=== PATIENT | female | born 1970 | race Caucasian/White ===

== ENCOUNTER 2023-07-17 20:48 | Emergency (ER) | payer OTHER ==
[2023-07-17 21:03] VITALS: BP 127/76; PULSE 104; RESP 18; TEMP 97.8; BMI 29.8
[2023-07-17] MEDS ORDERED: DEXAMETHASONE SOD PHOSPHATE 10 MG/1 ML VIAL PO ONE (21:34)
[2023-07-17] MEDS ORDERED: FLUTICASONE PROP 0.05% 16 GM NASAL SPRAY NS ONE (21:34)
[2023-07-17] MEDS ORDERED: BENZONATATE 200 MG CAPSULE PO ONE (21:35)
[2023-07-17] MEDS ORDERED: DEXAMETHASONE SOD PHOSPHATE 10 MG/1 ML VIAL ONE (21:44)
[2023-07-17] MEDS ORDERED: ALBUTEROL SO4 2.5/IPRATROPIUM 0.5 INH SOL 3 ML VIAL.NEB. NEB ONE (21:44)
[2023-07-17] MEDS: ALBUTEROL SO4 2.5/IPRATROPIUM 0.5 INH SOL 3 ML VIAL.NEB. NEB SCH ×2 (21:48→22:22)
== END 2023-07-17 23:03 | disposition home or self-care (01) ==
LOC: JERFT 20:48
PROC: 3E0F7GC Introduction of Other Therapeutic Substance into Respiratory Tract, Via Natural or Artificial Opening (ICD-10-PCS; principal; 2023-07-17)
DX: R05.9 Cough, unspecified (principal); R09.81 Nasal congestion; R51.9 Headache, unspecified; R42 Dizziness and giddiness; J06.9 Acute upper respiratory infection, unspecified; J01.90 Acute sinusitis, unspecified; J45.901 Unspecified asthma with (acute) exacerbation; Z20.822 Contact with and (suspected) exposure to COVID-19
CPT/HCPCS: 0241U-QW; 26055; 99283-25; J1100

== ENCOUNTER 2023-10-03 01:34 | Emergency (ER) | payer OTHER ==
[2023-10-03 01:40] VITALS: BP 135/85; PULSE 100; RESP 18; TEMP 98.3; BMI 29.8
== END 2023-10-03 02:36 | disposition home or self-care (01) ==
LOC: JER 01:34
DX: R10.30 Lower abdominal pain, unspecified (principal); L98.8 Other specified disorders of the skin and subcutaneous tissue; L08.9 Local infection of the skin and subcutaneous tissue, unspecified
CPT/HCPCS: 87070; 87076; 87077; 87186; 87205; 99283-25

== ENCOUNTER 2024-04-19 08:51 | Inpatient (IN) | payer OTHER ==
[2024-04-19] MEDS ORDERED: ACETAMINOPHEN INJECTION 100 ML IVPB ONE (10:08)
[2024-04-19 10:14] LABS: BASO % 0.5 % (0-2.0); HEMOGLOBIN 12.8 GM/dL (10.7-15.3); LYMPH % 12.9 % (8-40); MCHC 35.5 g/dl (32.0-36.0); MEAN CELL VOLUME 87.5 fl (80-96); MEAN PLT VOLUME 7.8 fl (7.5-11.1); MONO % 4.7 % (3.8-10.2); NEUT % 80.9 % (42.8-82.8); PLATELET COUNT 349 10^3/uL (134-434); RBC 4.11 M/mm3 (3.60-5.2); RDW 13.9 % (11.6-15.6); WHITE BLOOD COUNT 11.9 K/mm3 (4.0-10.0)
[2024-04-19] MEDS: ACETAMINOPHEN 1000 MG/100 ML BAG IVPB ONE (10:16)
[2024-04-19] MEDS: SODIUM CHLORIDE 0.9% 500 ML INFUS.BAG IV ONE ×2 (10:16→16:42)
[2024-04-19 10:31] LABS: CHLORIDE 107 mmol/L (98-107); SODIUM 136 mmol/L (136-145)
[2024-04-19 10:34] LABS: ALBUMIN 3.1 g/dl (3.4-5.0); BLOOD UREA NITROGEN 7.5 mg/dL (7-18); CALCIUM 8.6 mg/dL (8.5-10.1); CO2 23 mmol/L (21-32); GLUCOSE,RANDOM 133 mg/dL (74-106); MAGNESIUM 2.1 mg/dL (1.8-2.4)
[2024-04-19 10:35] LABS: ACTIVATED PTT 38.3 SECONDS (25.2-36.5); PROTHROMBIN TIME (PATIENT) 11.3 SEC (9.7-13.0)
[2024-04-19 10:37] LABS: CREATININE 0.8 mg/dL (0.55-1.3); SGOT/AST 49 U/L (15-37); SGPT/ALT 21 U/L (13-61)
[2024-04-19 10:39] LABS: ALK PHOS 108 U/L (45-117); BILIRUBIN,TOTAL 0.8 mg/dL (0.2-1)
[2024-04-19 10:43] LABS: INR 0.98 (0.83-1.09); PROTHROMBIN TIME (PATIENT) 11.1 SEC (9.7-13.0)
[2024-04-19 10:44] LABS: ANION GAP 7 mmol/L (4-13); POTASSIUM 6.5 mmol/L (3.5-5.1)
[2024-04-19 10:52] LABS: ERYTHROCYTE SEDIMENTATION RATE 20 mm/hr (0-30)
[2024-04-19] MEDS ORDERED: MORPHINE SULFATE 2 MG/ML SYRINGE ONE ×2 (11:32→13:58)
[2024-04-19] MEDS ORDERED: PIPERACILLIN/TAZOB 4.5 GM 4.5 GM/100 ML BAG IVPB ONE (11:36)
[2024-04-19] MEDS: morphine CARPU-JECT 2 MG/1 ML DISP.SYRIN IVPUSH ONE ×2 (11:37→14:01)
[2024-04-19] MEDS: PIPERACILLIN/TAZOB 4.5 GM 4.5 GM in DEXTROSE 5%-WATER 100 ML IVPB ONE (11:43)
[2024-04-19] MEDS ORDERED: VANCOMYCIN 1 GRAM (PRE-DOCKED) 1,000 MG/250 ML BAG IVPB ONE (12:35)
[2024-04-19] MEDS: VANCOMYCIN 1,000 MG in DEXTROSE 5%-WATER - 250 ML IVPB ONE (12:36)
[2024-04-19 14:23] LABS: EPI CELLS >36 /uL (0-25.1); HYALINE CASTS 1 /uL (0-3.1); URINE APPEARANCE CLOUDY; URINE BACTERIA 748 /uL (0-1359); URINE BILIRUBIN NEGATIVE (NEGATIVE); URINE COLOR YELLOW; URINE GLUCOSE (UA) NEGATIVE (NEGATIVE); URINE KETONE NEGATIVE (NEGATIVE); URINE LEUK ESTERASE 3+ (NEGATIVE); URINE NITRITE NEGATIVE (NEGATIVE); URINE PROTEIN TRACE (NEGATIVE); URINE RBC 30 /uL (0-23.9); URINE UROBILINOGEN 0.2 mg/dL (0.2-1.0); URINE WBC 1170 /uL (0-25.8)
[2024-04-19 14:46] LABS: POTASSIUM 3.7 mmol/L (3.5-5.1)
[2024-04-19 14:47] LABS: CALCIUM 8.4 mg/dL (8.5-10.1)
[2024-04-19 14:48] LABS: BLOOD UREA NITROGEN 6.8 mg/dL (7-18)
[2024-04-19 14:51] LABS: CREATININE 0.7 mg/dL (0.55-1.3)
[2024-04-19] MEDS: KETOROLAC TROMETHAMINE 15 MG/ML VIAL IVPUSH PRN (16:44)
[2024-04-19] MEDS ORDERED: PIPERACILLIN/TAZOB 4.5 GM 4.5 GM in DEXTROSE 5%-WATER 100 ML IVPB SCH (20:00)
[2024-04-19] MEDS: PIPERACILLIN/TAZOB 4.5 GM 4.5 GM in DEXTROSE 5%-WATER 100 ML IVPB SCH (21:19)
[2024-04-19] MEDS: LACTATED RINGERS SOLUTION 1,000 ML/1,000 ML INFUS.BAG IV SCH (21:23)
[2024-04-19] MEDS: HEPARIN NA (PORCINE) 5,000 UNITS/ML 1ML VIAL SQ SCH (21:24)
[2024-04-19] MEDS: VANCOMYCIN/WATER FOR INJ (PEG) 1,000 MG/200 ML BAG IVPB SCH (23:23)
[2024-04-20] MEDS: VANCOMYCIN 1,000 MG in DEXTROSE 5%-WATER - 250 ML IVPB SCH ×2 (00:44→18:12)
[2024-04-20 04:27] VITALS: BMI 28.0
[2024-04-20] MEDS: INSULIN ASPART SLIDING SCALE (NOVOLOG) 1 VIAL SQ SCH (06:19)
[2024-04-20 09:35] LABS: BASO % 0.3 % (0-2.0); HEMATOCRIT 34.6 % (32.4-45.2); HEMOGLOBIN 11.5 GM/dL (10.7-15.3); LYMPH % 17.7 % (8-40); MCH 29.7 pg (25.7-33.7); MCHC 33.3 g/dl (32.0-36.0); MEAN CELL VOLUME 89.2 fl (80-96); MEAN PLT VOLUME 7.9 fl (7.5-11.1); MONO % 5.3 % (3.8-10.2); NEUT % 75.7 % (42.8-82.8); PLATELET COUNT 283 10^3/uL (134-434); RBC 3.88 M/mm3 (3.60-5.2); RDW 13.6 % (11.6-15.6)
[2024-04-20 09:44] LABS: POTASSIUM 3.9 mmol/L (3.5-5.1)
[2024-04-20 10:02] LABS: CALCIUM 8.3 mg/dL (8.5-10.1)
[2024-04-20 10:03] LABS: BLOOD UREA NITROGEN 4.9 mg/dL (7-18)
[2024-04-20 10:06] LABS: CREATININE 0.7 mg/dL (0.55-1.3)
[2024-04-20 16:10] VITALS: RESP 18
[2024-04-20] MEDS: ACETAMINOPHEN 500 MG TABLET (FP) PO PRN (19:55)
[2024-04-20] MEDS: FLUCONAZOLE 150 MG TABLET PO ONE (19:56)
[2024-04-20] MEDS: ATORVASTATIN CA 20 MG TABLET (FP) PO SCH (23:11)
[2024-04-21] MEDS: MELATONIN 5 MG TABLETS PO ONE (04:29)
[2024-04-21 08:34] LABS: HEMATOCRIT 35.3 % (32.4-45.2); HEMOGLOBIN 12.2 GM/dL (10.7-15.3); MCH 30.5 pg (25.7-33.7); MCHC 34.5 g/dl (32.0-36.0); MEAN CELL VOLUME 88.4 fl (80-96); MEAN PLT VOLUME 7.7 fl (7.5-11.1); PLATELET COUNT 315 10^3/uL (134-434); RDW 13.5 % (11.6-15.6); WHITE BLOOD COUNT 7.4 K/mm3 (4.0-10.0)
[2024-04-21 08:53] LABS: CALCIUM 8.8 mg/dL (8.5-10.1); POTASSIUM 3.8 mmol/L (3.5-5.1)
[2024-04-21 08:54] LABS: MAGNESIUM 2.2 mg/dL (1.8-2.4)
[2024-04-21 08:56] LABS: CREATININE 0.6 mg/dL (0.55-1.3); PHOSPHOROUS 3.6 mg/dL (2.5-4.9)
[2024-04-21 13:00] VITALS: BP 123/76; PULSE 88; TEMP 98.2
== END 2024-04-21 12:23 | disposition home or self-care (01) | DRG 721 ==
LOC: JER 08:51 → JERBED 16:08 → J5S 18:27
PROVIDERS: ADMIT Internal Medicine; ATTEND Internal Medicine
DX: T81.41XA Infection following a procedure, superficial incisional surgical site, initial encounter (principal); J45.909 Unspecified asthma, uncomplicated; L03.311 Cellulitis of abdominal wall; I10 Essential (primary) hypertension; E78.5 Hyperlipidemia, unspecified; E11.9 Type 2 diabetes mellitus without complications; B37.31 Acute candidiasis of vulva and vagina; B99.9 Unspecified infectious disease; Y83.8 Other surgical procedures as the cause of abnormal reaction of the patient, or of later complication, without mention of misadventure at the time of the procedure
CPT/HCPCS: 0241U-QW; 36415; 71045-TC-FY; 74177-TC; 80048; 80053; 80061; 81003; 82962; 83036; 83605; 83735; 84100; 84484; 85025; 85027; 85610; 85651; 85730; 86140; 87040; 87070; 87086; 87186; 87205; 93005; 93010; 93971-TC; 99285-25; J0131; J1644; Q9967